=== PATIENT | female | born 2000 | race Two or more races ===

== ENCOUNTER 2025-01-28 09:50 | Emergency (ER) | payer BC, OTHER ==
[2025-01-28] MEDS ORDERED: Acetaminophen 500 MG TAB ONE (11:03)
== END 2025-01-28 12:50 | disposition home or self-care (01) ==
LOC: CSHERS 09:50
DX: O99.891 Other specified diseases and conditions complicating pregnancy (principal); M79.601 Pain in right arm; O10.913 Unspecified pre-existing hypertension complicating pregnancy, third trimester; Z3A.30 30 weeks gestation of pregnancy; Z55.6 Problems related to health literacy; Z75.3 Unavailability and inaccessibility of health-care facilities
CPT/HCPCS: 93005

== ENCOUNTER 2025-03-04 11:54 | Day surgery (SDC) | payer BC, OTHER ==
[2025-03-04] MEDS ORDERED: hydrALAZINE 20 MG/ML VIAL SLOW IVP PRN (12:16)
[2025-03-04 12:27] VITALS: BMI 48.3
[2025-03-04] MEDS: Ondansetron PF 4 MG/2 ML Vial IVP PRN (13:16)
[2025-03-04] MEDS: Metoclopramide HCl 10 MG (2 mL) VIAL IVP PRN (14:21)
[2025-03-04] MEDS: Lidocaine 2% Viscous Solution 10 ML, Aluminum & Magnesium Hydroxide 30 ML SSW SCH (14:22)
== END 2025-03-04 16:03 | disposition home or self-care (01) ==
LOC: CSHLD/OP 11:54
PROVIDERS: ATTEND Student in an Organized Health Care Education/Training Program
DX: O21.2 Late vomiting of pregnancy (principal); O09.43 Supervision of pregnancy with grand multiparity, third trimester; O13.3 Gestational [pregnancy-induced] hypertension without significant proteinuria, third trimester; O99.213 Obesity complicating pregnancy, third trimester; E66.01 Morbid (severe) obesity due to excess calories; Z3A.35 35 weeks gestation of pregnancy; Z79.899 Other long term (current) drug therapy
CPT/HCPCS: J2765